=== PATIENT | male | born 1975 | race Caucasian/White ===

== ENCOUNTER 2017-03-25 12:46 | Emergency (ER) | payer OTHER ==
[~2017-03-25] VITALS: Ht 188 cm; Wt 97.5 kg
[2017-03-25 14:01] LABS: BASO % 0.4 % (0.0-1.0); EOS # 0.1 K/mm3 (0.0-0.50); EOS % 1.1 % (0.0-3.0); LARGE UNSTAINED CELL # 0.1 K/mm3 (0.0-0.4); LARGE UNSTAINED CELL % 1.2 % (0.0-4.0); LYMPH # 2.2 K/mm3 (1.5-4.5); LYMPH % 26.8 % (24.0-44.0); MEAN CORPUSCULAR HEMOGLOBIN 30.6 pg (27.0-33.0); MEAN CORPUSCULAR HGB CONC 33.9 g/dl (32.0-36.5); MEAN CORPUSCULAR VOLUME 90.3 fl (80.0-96.0); MONO # 0.4 K/mm3 (0.0-0.8); MONO % 4.8 % (0.0-5.0); NEUTROPHILS # 5.1 K/mm3 (1.8-7.7); NEUTROPHILS % 65.7 % (36.0-66.0); PLATELET COUNT, AUTOMATED 156 k/mm3 (150-450); RED CELL DISTRIBUTION WIDTH 11.7 % (11.5-14.5); WHITE BLOOD COUNT 7.8 K/mm3 (4.0-10.0)
--- NOTE | 2017-03-25 14:06 | REP ---
CT Head without contrast HISTORY: Left paresthesias COMPARISON: None There is no intraparenchymal hemorrhage, acute infarct, mass or midline shift. The ventricular system is normal in appearance. There is no extra cerebral collection. There is no fracture. The visualized sinuses are clear. IMPRESSION: There is no intracranial lesion. Signed by Wade Lynn MD 03/25/2017 01:58 P
[2017-03-25] MEDS ORDERED: DOXY100C37 PO (14:37)
[2017-03-25 14:46] VITALS: BP 126/87
[2017-03-28 00:06] LABS: Lyme Disease IgG Ab 18 kDa Ban Present (.); Lyme Disease IgG Ab 23 kDa Ban Absent (.); Lyme Disease IgG Ab 28 kDa Ban Absent (.); Lyme Disease IgG Ab 30 kDa Ban Absent (.); Lyme Disease IgG Ab 39 kDa Ban Absent (.); Lyme Disease IgG Ab 41 kDa Ban Present (.); Lyme Disease IgG Ab 45 kDa Ban Absent (.); Lyme Disease IgG Ab 58 kDa Ban Absent (.); Lyme Disease IgG Ab 66 kDa Ban Absent (.); Lyme Disease IgG Ab 93 kDa Ban Absent (.); Lyme Disease IgG West Blot Int Negative (.); Lyme Disease IgG/IgM Antibodie <0.91 ISR (0.00-0.90); Lyme Disease IgM Ab 23 kDa Ban Absent (.); Lyme Disease IgM Ab 39 kDa Ban Absent (.); Lyme Disease IgM Ab 41 kDa Ban Present (.); Lyme Disease IgM Ab Quantitati 0.89 index (0.00-0.79); Lyme Disease IgM West Blot Int Negative (.)
== END 2017-03-25 14:57 | disposition home or self-care (01) ==
LOC: M ED 14:00 → EDSEX 14:00 → M ED 14:57
DX: R20.2 Paresthesia of skin (principal)

== ENCOUNTER → 2019-12-29 | Outpatient (CLI) | payer OTHER ==
[~2019-12-29] MED LIST: DOXY100C37 PO; ISOVUE-370 76% 100ML VIAL (Q9967) As Ordered ONE
--- NOTE | 2019-12-29 16:00 | REP ---
CT of the abdomen and pelvis with IV contrast, CT angiography of the thoracic and abdominal aorta: There are no comparison studies. The ascending thoracic aorta is mildly dilated measuring up to 38 - 40 mm.in diameter. Normal is up to 36 mm. There is no dilatation of the aortic arch or descending thoracic aorta. The mid aortic arch measures 23 mm, the proximal descending thoracic aorta measures 23 mm, the distal descending thoracic aorta measures 22 mm. There is no thoracic aortic dissection. There is no aneurysmal dilatation. There is no mediastinal hematoma. The pulmonary artery is suboptimally opacified. There are no large emboli in the pulmonary trunk or central pulmonary arteries. The study is insensitive for evaluation of the peripheral pulmonary arteries. Cardiac size is normal. There is no pericardial effusion. There are no infiltrates or pleural effusions. There are no lung masses or nodules. There is no mediastinal or hilar adenopathy or mass. There is no axillary adenopathy. Abdomen, pelvis not included: There is no aneurysm or dissection of the abdominal aorta. The proximal abdominal aorta measures 21 mm, mid abdominal aorta 19 mm and distal abdominal aorta 80 mm. The hepatic parenchyma is homogeneous. The gallbladder, pancreas and spleen are unremarkable. The adrenals and kidneys are unremarkable. The visualized bowel and mesentery are unremarkable. Impression: The ascending thoracic aorta is mildly dilated but not aneurysmal. There is no dilatation or aneurysm of the remainder of the thoracic or abdominal aorta. There is no dissection. No periaortic hematoma. Electronically Signed by Wang Rodriguez MD 12/29/2019 03:51 P
== END ==
LOC: M RAD 08:21
PROVIDERS: ATTEND General Practice
DX: R00.2 Palpitations (principal)
CPT/HCPCS: 71275; Q9967

== ENCOUNTER → 2022-03-30 | Outpatient (CLI) | payer OTHER ==
[~2022-03-30] MED LIST changes: +DOXY-443 PO; -DOXY100C37 PO; -ISOVUE-370 76% 100ML VIAL (Q9967) As Ordered ONE
== END ==
LOC: M PLAIMG 11:01
PROVIDERS: ATTEND Physician Assistant
DX: M51.34 Other intervertebral disc degeneration, thoracic region (principal); M47.896 Other spondylosis, lumbar region

== ENCOUNTER → 2022-05-04 | Outpatient (CLI) | payer OTHER | LOC: M PLAIMG 06:50 | PROVIDERS: ATTEND Physician Assistant Surgical | DX: M25.512 Pain in left shoulder (principal) ==

== ENCOUNTER 2023-09-17 16:43 | Emergency (ER) | payer OTHER ==
[~2023-09-17] VITALS: Ht 188 cm; Wt 101.8 kg
[~2023-09-17 16:43] MED LIST changes: +MELO15TA28 PO; +NEUR600T PO; +VITA100093 PO
[2023-09-17 16:44] VITALS: TEMP 99.1
[2023-09-17 17:50] LABS: BASO % 0.4 % (0.0-1.0); EOS # 0.2 10^3/uL (0.0-0.5); HEMOGLOBIN 14.6 g/dl (13.5-17.5); LYMPH # 2.7 10^3/uL (1.5-5.0); LYMPH % 39.5 % (24.0-44.0); MEAN CORPUSCULAR HEMOGLOBIN 30.9 pg (27.0-33.0); MEAN CORPUSCULAR HGB CONC 34.8 g/dl (32.0-36.5); MONO # 0.6 10^3/uL (0.0-0.8); MONO % 8.9 % (2.0-8.0); NEUTROPHILS # 3.2 10^3/uL (1.5-8.5); NEUTROPHILS % 48.1 % (36.0-66.0); PLATELET COUNT, AUTOMATED 143 10^3/uL (150-450); RED BLOOD COUNT 4.72 10^6/uL (4.30-6.10); WHITE BLOOD COUNT 6.7 10^3/uL (4.0-10.0)
[2023-09-17 18:12] LABS: CK-MB VALUE MASS < 1.0 NG/ML (<3.6)
[2023-09-17 18:14] LABS: BLOOD UREA NITROGEN 14 MG/DL (9-23); CALCIUM LEVEL 8.8 MG/DL (8.5-10.1); CARBON DIOXIDE LEVEL 26 MMOL/L (20-31); CHLORIDE LEVEL 107 MMOL/L (98-107); CPK CREATINE PHOSPHOKINASE 152 U/L (46-171); CREATININE FOR GFR 0.79 MG/DL (0.70-1.30); GLOMERULAR FILTRATION RATE > 60.0 (>60); GLUCOSE, FASTING 85 MG/DL (60-100); MB/CK RELATIVE INDEX 0.65 (< OR =4); SODIUM LEVEL 141 MMOL/L (136-145)
[2023-09-17 19:03] LABS: CK-MB VALUE MASS < 1.0 NG/ML (<3.6)
[2023-09-17 19:05] LABS: CPK CREATINE PHOSPHOKINASE 152 U/L (46-171); MB/CK RELATIVE INDEX 0.65 (< OR =4)
[2023-09-17 20:15] VITALS: BP 127/93; O2SAT 98
[2023-09-17] MEDS ORDERED: HOLTER MONITOR XX (20:20)
== END 2023-09-17 20:32 | disposition home or self-care (01) ==
LOC: M ED 16:43
DX: R00.2 Palpitations (principal); R07.89 Other chest pain; Z87.891 Personal history of nicotine dependence